=== PATIENT | female | born 1965 | race Caucasian/White ===

== ENCOUNTER → 2016-09-02 | Outpatient (CLI) | payer BC ==
--- OUTSIDE RECORDS SUMMARY | 2016-09-02 11:58 | XMS REPORT | CCD ---
Author Author COLUMBA HARDIN Unknown Address [address] [facility] [address] [place], [place] [id number] Care Team Providers Care Package Checker Name Role Phone CARLO OSBORN, PHI Attphys Vital Signs Vital Sign Value Unit Date/Time Recent/Initial? Weight Measured 220 lbs 12/21/2015 08:00 Initial VS Height 65 in 12/21/2015 08:00 Initial VS BMI (Body Mass Index) 36.61 kg/m^2 12/21/2015 08:00 Initial VS BSA (Body Surface Area) 2.14 m^2 12/21/2015 08:00 Initial VS Allergies Allergy Code Allergy Type Reaction Status SULFA (sulfonamide) 0 Drug allergy Active DOXYCYCLINE 3640 Drug allergy Active Procedures Procedure Code Procedure Type Date Neuroplasty and/or transposition; median nerve at carpal tunnel; (-RT Righ 07749 CPT 12/22/2015 TEST URINE [id number] SNOMED CT 12/22/2015 History of Immunizations Immunization Code Date Td (adult), adsorbed 09 03/14/1997 influenza, split (incl. purified surface antigen) 15 06/01/1996 influenza, split (incl. purified surface antigen) 15 06/05/1999 influenza, split (incl. purified surface antigen) 15 06/21/2002 influenza, split (incl. purified surface antigen) 15 07/04/2006 influenza, split (incl. purified surface antigen) 15 06/15/2008 influenza, split (incl. purified surface antigen) 15 06/02/2009 influenza, split (incl. purified surface antigen) 15 06/20/2010 Hep B, adult 43 12/14/2007 Tdap 115 12/14/2007 Novel [id number] 127 06/16/2009 Influenza, seasonal, injectable 141 06/08/2012 Influenza, seasonal, injectable 141 06/18/2013 Problems Unknown or Not Available. Results TEST URINE - Collect Date/Time: 11/22/2015 06:18 Test Name Code Test Result Test Units Test Ref Range TEST UR 2106-3 NEGATIVE N/A Active Medications No Active Medications Medications Administered During Visit Unknown or Not Available. Encounters Encounter Diagnosis Diagnosis Code Start Date Carpal tunnel syndrome, right upper limb G5601 12/22/2015 Social History Smoking Status Code Start Date End Date Never smoker [id number] Patient Decision Aids Patient Decision Aid HAND SURGERY; AFTER THE PROCEDURE Discharge Instructions You were admitted to [facility] on 12/22/2015 06:04 with a principal diagnosis of Carpal tunnel syndrome, right upper limb You had the following procedures done: Neuroplasty and/or transposition; median nerve at carpal tunnel; (-RT Righ You had the following tests done: TEST URINE You were discharged from [facility] on 12/22/2015 08:32 Should you have any questions prior to discharge, please contact a member of your healthcare team. If you have left the hospital and have any questions, please contact your primary care physician. Chief Complaint and Reason For Visit Chief Complaint Date of Onset ORT CARPAL TUNNEL RT Function Status Unknown or Not Available. Plan of Care Unknown or Not Available. Referral/Transition of Care Unknown or Not Available.
--- NOTE | 2016-09-02 15:39 | Diagnostic Imaging Report ---
Transabdominal and transvaginal pelvic ultrasound. INDICATION: Uterine enlargement. FINDINGS: The uterus is 8.9 x 5.7 x 4.9 cm. The endometrial stripe is 0.6 cm in thickness. This patient appears to be still menstruating at 51 and this endometrial thickness would be within normal limits since the patient is not postmenopausal. The myometrium is slightly heterogeneous. There is somewhat globular mild enlargement in the uterus and multiple diffuse tiny hyperechoic foci seen. These findings may correlate with adenomyosis. Also along the anterior aspect of the uterine body, there is a suspected small subserosal fibroid measuring 1.2 x 0.9 x 1.1 cm with mild peripheral vascularity seen on color Doppler. No other definite fibroids are noted. The right ovary is obscured by bowel gas. The left ovary is 4 x 4.1 x 2.7 cm in size with normal follicle seen. The urinary bladder appears unremarkable. IMPRESSION: Findings in the myometrium may relate to underlying adenomyosis. There is also suggestion of a small anterior myometrial fibroid in subserosal location. Dictated by: Dictated on workstation # [id number]
--- NOTE | 2016-09-02 18:49 | Diagnostic Imaging Report ---
Bilateral diagnostic mammogram. The current study was also evaluated with a Computer Aided Detection (CAD) system. INDICATION: Lump in the outer aspect of the left breast. FINDINGS: The breasts are composed of scattered fibroglandular densities. There is no developing mass, architectural distortion, or suspicious cluster of calcification identified. The area of palpable lump in the outer aspect of the left breast demonstrates no underlying mammographic abnormality. Benign-appearing calcifications seen. IMPRESSION: No mammographic evidence of malignancy. Ultrasound evaluation pending. ACR BI-RADS Category 0: Incomplete. (Needs additional imaging evaluation). Result letter will be mailed to the patient. Note: At least 10% of breast cancer is not imaged by mammography. Dictated by: Dictated on workstation # [id number]
--- NOTE | 2016-09-02 20:22 | Diagnostic Imaging Report ---
Exam: Left breast ultrasound. Indication: Left breast palpable lesion. Findings: The palpable area at 3:00 o'clock, zone in the far outer aspect of the breast about 22 cm from the nipple appears to correlate with a hypoechoic area measuring 2.9 x 2 x 0.9 cm with no internal vascularity. This blends with adjacent tissues and may represent a normal fat lobule in the breast or from the adjacent subcutaneous fat. This could also represent a lipoma. No suspicious mass is seen. Impression: The palpable area may relate to a lipoma or a prominence of fat lobule within the breast or in the subcutaneous fat. Correlate clinically. No suspicious mass is seen. BI-RADS 2. Dictated by: Dictated on workstation # [id number]
== END ==
LOC: RAD 11:55
PROVIDERS: ATTEND Obstetrics & Gynecology
DX: N60.02 Solitary cyst of left breast (principal); N85.2 Hypertrophy of uterus
CPT/HCPCS: 76642; 76830; 76856